=== PATIENT | female | born 1980 | race Caucasian/White ===

== ENCOUNTER 2016-08-15 01:02 | Emergency (ER) | payer SELFPAY ==
[~2016-08-15] VITALS: Ht 170.2 cm; Wt 85.0 kg
[2016-08-15 01:06] VITALS: BP 132/84; PULSE 115; RESP 18; TEMP 98.1; O2SAT 100
[2016-08-15] MEDS ORDERED: CYMB30CA PO (01:17)
[2016-08-15] MEDS ORDERED: CLON1 PO (01:17)
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
[2016-08-15] MEDS ORDERED: KETOROLAC TROMETHAMINE 60 MG/2 ML (IM) VIAL IM ONE (02:15)
--- NOTE | 2016-08-15 02:36 | RADRPT ---
EXAM DATE/TIME: 08/15/2016 01:51 [facility] COMPARISON: No previous studies available for comparison. INDICATIONS : Low back and left hip pain post fall. MEDICAL HISTORY : None. SURGICAL HISTORY : None. ENCOUNTER: Initial ACUITY: 1 day PAIN SCORE: 10/10 LOCATION: Left hip FINDINGS: Two-view examination of the sacrum and coccyx demonstrates no evidence of fracture or malalignment. The sacral ala and foramina appear symmetric and intact. The coccyx appears unremarkable. The preve rtebral soft tissues are within normal limits. CONCLUSION: 1. No acute findings. Devang Newton MD on August 15, 2016 at 2:33 Board Certified Radiologist. This report was verified electronically.
--- NOTE | 2016-08-15 02:37 | RADRPT ---
EXAM DATE/TIME: 08/15/2016 01:53 [facility] COMPARISON: No previous studies available for comparison. INDICATIONS : Left flank and hip pain post fall. MEDICAL HISTORY : None. SURGICAL HISTORY : None. ENCOUNTER: Initial ACUITY: 1 day PAIN SCORE: 10/10 LOCATION: Left hip FINDINGS: A single frontal view of the pelvis demonstrates no evidence of fracture. The bony pelvic ring is in tact. Bony mineralization is normal. The soft tissues are intact. CONCLUSION: Unremarkable examination of the pelvis. Devang Newton MD on August 15, 2016 at 2:35 Board Certified Radiologist. This report was verified electronically.
--- NOTE | 2016-08-15 02:39 | RADRPT ---
EXAM DATE/TIME: 08/15/2016 01:58 [facility] COMPARISON: No previous studies available for comparison. INDICATIONS : Left hand pain post fall. Left fifth matacarpal surgically repaired weeks ago. MEDICAL HISTORY : None. SURGICAL HISTORY : Pinning of left fifth metacarpal ENCOUNTER: Initial ACUITY: 1 day PAIN SCORE: 6/10 LOCATION: Left hand FINDINGS: Three view examination of the left hand demonstrates no soft tissue swelling, dislocation, or fractur e. The carpal bones appear intact. The interphalangeal and metacarpophalangeal joints are intact. Bony mineralization is normal. CONCLUSION: 1. No acute bony abnormalities. Devang Newton MD on August 15, 2016 at 2:36 Board Certified Radiologist. This report was verified electronically.
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
[2016-08-15] MEDS ORDERED: LIDOCAINE 1%/EPINEPHrine 1:100,000 SOLN 20 ML VIAL INFIL ONE (03:00)
[2016-08-15] MEDS ORDERED: MOBI15TA PO (03:11)
[2016-08-15] MEDS ORDERED: TYLETAB34 PO (03:11)
--- NOTE | 2016-08-15 03:22 | PD ---
Physical Exam Time Seen by Provider: 03:21 Data Data Last Documented VS Vital Signs Date Time Temp Pulse Resp B/P Pulse Ox O2 Delivery O2 Flow Rate FiO2 08/15/16 01:13 100 18 100 08/15/16 01:06 98.1 132/[address] Brain W/O Iv Contrast(Rout) (08/15/16 01:26) Hand, Complete ([id number]) (08/15/16 01:26) Pelvis, Ap Only (Routine) (08/15/16 01:26) Sacrum And Coccyx (08/15/16 ) Ketorolac Inj (Toradol Inj) (08/15/16 02:15) Lidocai-Epi 1%-1:100,000 Inj (Xylocaine- (08/15/16 03:00) MDM Medical Record Reviewed: Yes Supervised Visit with [facility]: No Procedures Procedure Narrative LACERATION LOCATION: Occipital scalp LENGTH: 2.5 centimeters NUMBER OF STITCHES/MARGY: 2 margy REPAIR: The area of the laceration was prepped with Betadine and sterilely draped. The wound was copiously irrigated and explored without evidence of foreign body, tendon injury or neurovascular injury. The wound was closed using margy. This was a single layer repair. Patient tolerated the procedure well. Diagnosis Primary Impression: Scalp laceration Qualified Code: S01.01XA - Scalp laceration, initial encounter Additional Impressions: Closed head injury Qualified Code: S09.90XA - Closed head injury, initial encounter Multiple contusions Patient Instructions: General Instructions Additional Instruction: Head trauma instructions given. Take medications as needed. Follow-up with personal physician. Staple removal in 7 days. Scripts Acetaminophen-Codeine (Tylenol-Codeine #3)300-30 mg Tab1 Tab PO Q6HR PRN ( HEADACHE) #20 TAB Prov:Timmy Almonte MD 08/15/16 Meloxicam (Mobic)15 Mg Tab15 Mg PO DAILY #20 TAB Prov:Timmy Almonte MD 08/15/16 Disposition: 01 DISCHARGE HOME Condition: Stable Terri Flores Aug 15, 2016 03:22
[2016-08-15 03:45] VITALS: BP 125/75; PULSE 100; RESP 18; TEMP 98.1; O2SAT 95
[2016-08-15 04:51] VITALS: BP 97/53; PULSE 90; RESP 18; TEMP 98.1; O2SAT 97
== END 2016-08-15 05:21 | disposition home or self-care (01) ==
LOC: NEPC 01:02
DX: S01.01XA Laceration without foreign body of scalp, initial encounter (principal); S09.90XA Unspecified injury of head, initial encounter; Y04.0XXA Assault by unarmed brawl or fight, initial encounter; Y93.89 Activity, other specified; Y99.9 Unspecified external cause status
CPT/HCPCS: 12001; 70450; 72170; 72220; 73130; 96372; 99284; J1885